=== PATIENT | female | born 1985 | race Two or more races ===

== ENCOUNTER 2023-05-01 12:20 | Emergency (ER) | payer MEDICAID, OTHER ==
[~2023-05-01] VITALS: Ht 162.6 cm; Wt 54.5 kg
[2023-05-01 12:29] VITALS: BP 135/35; PULSE 94; RESP 18; TEMP 98.3; O2SAT 97
[2023-05-01 12:53] LABS: EOSINOPHILS % 2.3 % (0.0-5.0); HEMATOCRIT. 40.2 % (36.0-48.0); HEMOGLOBIN. 13.2 g/dL (12.0-16.0); LYMPHOCYTES % 17.9 % (20.0-50.0); MEAN CORPUSCULAR HEMOGLOBIN 29.3 pg (28.0-32.0); MEAN CORPUSCULAR HGB CONC 32.9 g/dL (31.0-37.0); MEAN CORPUSCULAR VOLUME 88.9 fL (81.0-99.0); MEAN PLATELET VOLUME 7.5 fl (7.4-10.4); MONOCYTES % 10.9 % (2.0-8.0); NEUTROPHILS % 67.9 % (40.0-76.0); PLATELET 349 x1000/uL (130-400); RED BLOOD CELL COUNT 4.52 mill/uL (4.2-5.4); RED CELL DISTRIBUTION WIDTH 13.3 % (11.6-14.6); WHITE BLOOD COUNT 7.6 x1000/uL (4.5-11.0)
[2023-05-01 12:59] LABS: CHLORIDE 106 mEq/L (98-107); INDEX HEMOLYSI 1 (1-3); INDEX ICTERIC 1 (1-4); INDEX LIPEMIC 1 (1-3); POTASSIUM 3.5 mEq/L (3.5-5.1); SODIUM 135 mEq/L (136-145)
[2023-05-01] MEDS ORDERED: TETANUS, DIPHTHERIA, PERTUSSIS VAC/PF 0.5ML (>10YR OLD) IM ONE (13:00)
[2023-05-01] MEDS ORDERED: MORPHINE SULFATE 4 MG/ML CPJ (NOT FOR IM USE) IV ONE (13:00)
[2023-05-01] MEDS ORDERED: SODIUM CHLORIDE 0.9% 1,000 ML IV ONE (13:00)
[2023-05-01 13:07] LABS: ALANINE AMINOTRANSFERASE 39 IU/L (13-61); ALBUMIN 3.3 g/dL (3.4-5.0); ASPARTATE AMINOTRANSFERASE 22 IU/L (15-37); BILIRUBIN TOTAL 0.7 mg/dL (0.1-1.0); CALCIUM 8.3 mg/dL (8.5-10.1); CARBON DIOXIDE 25 mEq/L (21-32); CREATININE 0.7 mg/dL (0.6-1.3); GLUCOSE 97 mg/dL (70-105); PROTEIN TOTAL 7.4 g/dL (6.0-8.3); UREA NITROGEN BLOOD 14 mg/dL (7-21)
[2023-05-01 13:25] LABS: HCG SCREEN NEGATIVE
== END 2023-05-01 14:05 | disposition left against medical advice (07) ==
LOC: ER 12:20
DX: T25.221A Burn of second degree of right foot, initial encounter (principal); T79.9XXA Unspecified early complication of trauma, initial encounter; Z53.21 Procedure and treatment not carried out due to patient leaving prior to being seen by health care provider; X08.8XXA Exposure to other specified smoke, fire and flames, initial encounter; Y93.89 Activity, other specified; Y92.89 Other specified places as the place of occurrence of the external cause; Y99.8 Other external cause status
CPT/HCPCS: 99283; 80053; 84703; 85025; 36415; J7030

== ENCOUNTER 2025-01-20 17:18 | Emergency (ER) | payer OTHER ==
[~2025-01-20] VITALS: Ht 162.6 cm; Wt 61.4 kg
[2025-01-20 17:22] VITALS: O2SAT 98
[2025-01-20 17:25] VITALS: BP 104/86; PULSE 91; RESP 16; TEMP 36.5; O2SAT 99
[2025-01-20] MEDS ORDERED: D-ME473S50 PO (21:13)
== END 2025-01-20 22:00 | disposition home or self-care (01) ==
LOC: ER 17:18
DX: J06.9 Acute upper respiratory infection, unspecified (principal); Z79.899 Other long term (current) drug therapy
CPT/HCPCS: 71045; 99283